=== PATIENT | male | born 1975 | race Caucasian/White ===

== ENCOUNTER 2017-09-06 17:49 | Emergency (ER) | payer OTHER ==
[~2017-09-06] VITALS: Ht 180.3 cm; Wt 122.5 kg
[~2017-09-06 17:49] MED LIST: TRAMADOL; TYLENOL WITH C1 EACH PO
[2017-09-06] MEDS ORDERED: DEXAMETHASONE SOD PHOS INJ 4 MG/ML VIAL IM ONE (20:15)
[2017-09-06] MEDS ORDERED: BACTRIM DS TAB1 EACH PO (21:27)
[2017-09-06] MEDS ORDERED: PREDNISONE20 MG PO (21:30)
== END 2017-09-06 21:49 | disposition home or self-care (01) ==
LOC: FSED 17:49
DX: H92.01 Otalgia, right ear (principal); J01.00 Acute maxillary sinusitis, unspecified
CPT/HCPCS: 87400; 96372; 99282; J1100

== ENCOUNTER → 2018-06-21 | Outpatient (CLI) | payer OTHER ==
[~2018-06-21] MED LIST changes: +BACTRIM DS TAB1 EACH PO; +PREDNISONE20 MG PO
--- NOTE | 2018-06-21 09:15 | Diagnostic Imaging Report ---
PROCEDURE:X-RAY ABDOMEN - KUB COMPARISON:None available. Report for CT abdomen and pelvis 04/19/2016 was available for review.. INDICATIONS:CALCULUS OF KIDNEY FINDINGS: 4-5 mm calcification projects over the upper pole of the left renal shadow. Questionable 3 mm calcification projecting over the lower pole of the left renal shadow. No additional calcifications project over the renal shadows or expected ureteral courses though evaluation of the right renal shadow is limited secondary to overlying bowel contents. Bowel gas pattern is nonobstructive. Regional skeletal structures are intact. Metallic piercing projects over the L3-L4 level. CONCLUSION: Small left renal calculi measuring up to 5 mm as above. Dictated by: Gabriele Spears M.D. on 06/21/2018 at 9:24 Electronically approved by: Gabriele Spears M.D. on 06/21/2018 at 9:24
== END ==
LOC: RAD 08:37
PROVIDERS: ATTEND Urology
DX: N20.0 Calculus of kidney (principal)
CPT/HCPCS: 74018

== ENCOUNTER → 2019-05-07 | Outpatient (CLI) | payer OTHER ==
--- NOTE | 2019-05-07 17:41 | Diagnostic Imaging Report ---
EXAM: CT Abdomen and Pelvis WITHOUT intravenous contrast INDICATION: Renal calculi, left flank pain COMPARISON: None. TECHNIQUE: Abdomen and pelvis were scanned utilizing a multidetector helical scanner from the lung base to the pubic symphysis without administration of IV contrast. Coronal and sagittal reformations were obtained. IV CONTRAST: None ORAL CONTRAST: Water COMPLICATIONS: None RADIATION DOSE: Total DLP: 889.5 mGy*cm Dose modulation, iterative reconstruction, and/or weight based adjustment of the mA/kV was utilized to reduce the radiation dose to as low as reasonably achievable. FINDINGS: LOWER THORAX: Normal. HEPATOBILIARY: No focal liver lesion. Unremarkable gallbladder. SPLEEN: No splenomegaly. PANCREAS: No focal masses or ductal dilatation. ADRENALS: No adrenal nodules. KIDNEYS/URETERS: Nonobstructing 5 mm renal calculi at the upper pole of left kidney and lower pole of left kidney. No right renal calculi. No hydronephrosis. PELVIC ORGANS/BLADDER: Unremarkable. PERITONEUM / RETROPERITONEUM: No free air or fluid. LYMPH NODES: No lymphadenopathy. VESSELS: Unremarkable. GI TRACT: Mild colonic diverticulosis. No CT evidence of diverticulitis. No abnormal bowel wall thickening. No bowel obstruction. Normal appendix. BONES AND SOFT TISSUES: No acute osseous injury. No suspicious lytic or blastic lesions. IMPRESSION: Multiple left upper pole and lower pole renal calculi measuring up to 5 mm. No hydronephrosis. No right renal calculi. Signed by: Rodrigo Blount MD on 05/07/2019 5:38 PM
== END ==
LOC: CT 16:24
PROVIDERS: ATTEND Urology
DX: N20.0 Calculus of kidney (principal)
CPT/HCPCS: 74176